=== PATIENT | male | born 1960 | race Caucasian/White ===

== ENCOUNTER 2022-04-10 14:51 | Emergency (ER) | payer OTHER ==
[2022-04-10 15:02] VITALS: BP 123/61; PULSE 73; RESP 17; TEMP 97.6; BMI 26.4
[2022-04-10] MEDS ORDERED: diazePAM 5 MG TABLET PO ONE (15:46)
[2022-04-10] MEDS ORDERED: KETOROLAC TROMETHAMINE 15 MG/ML VIAL IM ONE (15:46)
[2022-04-10] MEDS ORDERED: diazePAM 5 MG TABLET ONE (15:48)
[2022-04-10] MEDS ORDERED: KETOROLAC TROMETHAMINE 15 MG/ML VIAL ONE (15:48)
== END 2022-04-10 16:01 | disposition home or self-care (01) ==
LOC: JERFT 14:51
PROC: 3E0233Z Introduction of Anti-inflammatory into Muscle, Percutaneous Approach (ICD-10-PCS; principal; 2022-04-10)
DX: M54.2 Cervicalgia (principal)
CPT/HCPCS: 99284-25

== ENCOUNTER 2022-12-05 15:48 | Emergency (ER) | payer OTHER ==
[2022-12-05 15:54] VITALS: BP 142/77; PULSE 77; RESP 18; TEMP 98; BMI 27.7
[2022-12-05] MEDS ORDERED: IBUPROFEN 400 MG TABLET (FP) PO ONE ×3 (17:28→17:40)
== END 2022-12-05 18:27 | disposition home or self-care (01) ==
LOC: JERFT 15:48
DX: M25.551 Pain in right hip (principal)
CPT/HCPCS: 73502-TC-RT-FY; 99283-25